=== PATIENT | female | born 1965 | race American Indian/Alaskan Native ===

== ENCOUNTER 2017-06-30 10:39 | Emergency (ER) | payer OTHER ==
[2017-06-30 10:40] VITALS: BMI 24.0
[2017-06-30 10:54] VITALS: RESP 18; O2SAT 100
[2017-06-30] MEDS ORDERED: Sodium Chloride 0.9% 1,000 ML IV ONE (11:07)
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
[2017-06-30 11:21] LABS: BASO % 0.2 % (0.0-2.0); EOS % 0.1 % (0.0-4.0); HEMATOCRIT 42.1 % (34.0-47.0); LYMPH # 3.6 K/uL (1.0-4.3); LYMPH % 26.3 % (20.0-40.0); MEAN CELL VOLUME 81.3 fL (81.0-99.0); MEAN CORPUSCULAR HEMOGLOBIN 26.3 pg (27.0-31.0); MEAN CORPUSCULAR HGB CONC 32.4 g/dL (33.0-37.0); MEAN PLATELET VOLUME 7.8 fL (7.2-11.7); MONO # 0.8 K/uL (0.0-0.8); RED CELL DISTRIBUTION WIDTH 13.8 % (11.5-14.5); WHITE BLOOD COUNT 13.5 K/uL (4.8-10.8)
[2017-06-30 11:28] LABS: CHLORIDE 102 mmol/L (98-107)
[2017-06-30 11:29] LABS: POTASSIUM 3.4 mmol/L (3.6-5.2); SODIUM 142 mmol/L (132-148)
[2017-06-30 11:31] LABS: ALB/GLOB RATIO 1.1 (1.0-2.1); ALKALINE PHOSPHATASE 92 U/L (38-126); AST/SGOT 32 U/L (14-36); BILIRUBIN,TOTAL 0.4 mg/dL (0.2-1.3); BLOOD UREA NITROGEN 15 mg/dL (7-17); CARBON DIOXIDE 24 mmol/L (22-30); GFR AFRICAN-AMERICAN > 60; TOTAL PROTEIN 7.8 g/dL (6.3-8.3)
[2017-06-30 11:32] LABS: ALT/SGPT 37 U/L (9-52); CALCIUM 9.4 mg/dl (8.6-10.4); GLUCOSE,RANDOM 119 mg/dL (65-105)
--- NOTE | 2017-06-30 12:08 | RAD ---
PROCEDURE: Radiographs of the Lumbar Spine. HISTORY: LOW BACK PAIN AFTER INJURY COMPARISON: None available. FINDINGS: BONES: Alignment appears satisfactory. No listhesis. No acute displaced fracture identified. DISC SPACES: Unremarkable. OTHER FINDINGS: None. IMPRESSION: No acute displaced fracture or subluxation identified.
[2017-06-30 12:21] VITALS: BP 113/68; PULSE 73; TEMP 98
--- NOTE | 2017-06-30 20:17 | CARD ---
APPROVED REPORT EKG Measurement Heart [id number] <Conclusion> Normal sinus rhythm Normal ECG
== END 2017-06-30 13:01 | disposition home or self-care (01) ==
LOC: C.ER 10:39
DX: S33.5XXA Sprain of ligaments of lumbar spine, initial encounter (principal); S30.0XXA Contusion of lower back and pelvis, initial encounter; W22.8XXA Striking against or struck by other objects, initial encounter; Y93.89 Activity, other specified; Y92.89 Other specified places as the place of occurrence of the external cause; Y99.8 Other external cause status; R11.2 Nausea with vomiting, unspecified
CPT/HCPCS: 72100; 80053; 82948; 83690; 85025; 93005; 96361; 96374; 99285; J2405; J7040

== ENCOUNTER 2018-05-26 08:08 | Emergency (ER) | payer OTHER ==
[2018-05-26 08:08] VITALS: BMI 24.0
[2018-05-26 08:16] VITALS: RESP 20
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
--- NOTE | 2018-05-26 09:49 | CT ---
Date of service: 05/26/2018 PROCEDURE: CT HEAD WITHOUT CONTRAST. HISTORY: head injury, on ASA, r/o bleed COMPARISON: 10/01/2003 TECHNIQUE: Axial computed tomography images were obtained through the head/brain without intravenous contrast. Radiation dose: Total exam DLP = 849 mGy-cm. This CT exam was performed using one or more of the following dose reduction techniques: Automated exposure control, adjustment of the mA and/or kV according to patient size, and/or use of iterative reconstruction technique. FINDINGS: HEMORRHAGE: No intracranial hemorrhage. BRAIN: No mass effect or edema. No atrophy. The left frontal lobe deep white matter radiolucency without gross surrounding edema is similar in appearance - stable microvascular ischemic changes here are inferred. . VENTRICLES: Unremarkable. No hydrocephalus. CALVARIUM: Unremarkable. PARANASAL SINUSES: Unremarkable as visualized. No significant inflammatory changes. MASTOID AIR CELLS: Unremarkable as visualized. No inflammatory changes. OTHER FINDINGS: None. IMPRESSION: No intracranial hemorrhage or mass effect. The left frontal lobe deep white matter radiolucency without gross surrounding edema is similar in appearance - stable microvascular ischemic changes here are inferred.
[2018-05-26 10:06] VITALS: BP 130/81; PULSE 80; TEMP 98.2
[2018-05-30 12:19] VITALS: O2SAT 97
== END 2018-05-26 10:15 | disposition home or self-care (01) ==
LOC: C.ER 08:08
DX: S00.03XA Contusion of scalp, initial encounter (principal); W22.8XXA Striking against or struck by other objects, initial encounter; Y92.89 Other specified places as the place of occurrence of the external cause; Y99.0 Civilian activity done for income or pay

== ENCOUNTER 2018-12-25 19:53 | Emergency (ER) | payer OTHER ==
[2018-12-25 19:53] VITALS: BMI 24.0
[2018-12-25] MEDS ORDERED: Sucralfate 1 gm/10 ml Oral Susp UD PO STA (20:16)
--- NOTE | 2018-12-25 20:17 | C.PDOC ---
History Of Present Illness 53 year old female presents to the ED c/o epigastric abdominal pain radiating towards his chest wall area. Patient states she has history of GERD and is taking medications for it now. Patient denies fever, chills, SOB, palpitations, headache, nausea, vomit, rash, diarrhea, weakness, numbness, Time Seen by Provider: 12/25/18 20:12 Chief Complaint (Nursing): Shortness Of Breath History Per: Patient History/Exam Limitations: no limitations Onset/Duration Of Symptoms: Days Current Symptoms Are (Timing): Still Present Initiating Event: Upper Respiratory Illness Quality: "Pain" Recent travel outside of the [place]: No Additional History Per: Patient Past Medical History Reviewed: Historical Data, Nursing Documentation, Vital Signs Vital Signs: Last Vital Signs Temp 97.9 F 12/25/18 20:06 Pulse 103 H 12/25/18 20:06 Resp 24 12/25/18 20:06 BP 132/89 12/25/18 20:06 Pulse Ox 100 12/25/18 20:06 - Medical History PMH: Anxiety, Asthma, CHF, Gastritis, GERD, HTN, Hypercholesterolemia Surgical History: Appendectomy Family History: States: Unknown Family Hx - Social History Hx Tobacco Use: No Hx Alcohol Use: No Hx Substance Use: No - Immunization History Hx Tetanus Toxoid Vaccination: No Hx Influenza Vaccination: Yes Hx Pneumococcal Vaccination: No Review Of Systems Constitutional: Negative for: Fever, Chills Cardiovascular: Positive for: Chest Pain. Negative for: Palpitations Respiratory: Negative for: Cough, Shortness of Breath Gastrointestinal: Positive for: Abdominal Pain. Negative for: Nausea, Vomiting, Diarrhea Skin: Negative for: Rash Neurological: Negative for: Weakness, Numbness, Headache, Dizziness Physical Exam - Physical Exam Appears: Non-toxic, No Acute Distress, Other (anxious appearing) Skin: Normal Color, Warm, Dry Head: Atraumatic, Normacephalic Eye(s): bilateral: Normal Inspection Oral Mucosa: Moist Neck: Normal ROM, Supple Chest: Symmetrical Cardiovascular: Rhythm Regular Respiratory: Normal Breath Sounds, No Rales, No Rhonchi, No Wheezing Gastrointestinal/Abdominal: Soft, Tenderness (epigastric), No Guarding, No Rebound Back: No CVA Tenderness Extremity: Normal ROM, No Tenderness, No Swelling Neurological/Psych: Oriented x3, Normal Speech, Normal Cognition Gait: Steady ED Course And Treatment - Laboratory Results Result Diagrams: 12/25/18 20:43 12/25/18 20:43 ECG: Interpreted By Me, Viewed By Me ECG Rhythm: Sinus Rhythm, ST/T Changes ECG Interpretation: No Acute Changes Interpretation Of ECG: NSR, nonspc ST-T changes, borderline tracings Rate From EC O2 Sat by Pulse Oximetry: 100 (ON RA) Pulse Ox Interpretation: Normal - CT Scan/US CT abd/pelvis Other Rad Studies (CT/US): Read By Radiologist, Radiology Report Reviewed CT/US Interpretation: CT SCAN OF THE ABDOMEN AND PELVIS WITHOUT ORAL OR IV CONTRAST. CLINICAL INDICATION: Epigastric pain with elevated lipase. TECHNIQUE: Axial and reformatted sagittal and coronal images of the abdomen pelvis obtained without IV contrast administration. COMPARISON: None. FINDINGS: Minimal subsegmental atelectatic changes in the lung bases more prominent in the lingula and right middle lobe. Uncomplicated colonic diverticulosis. Mild amount of fecal residue and large bowels. Enlarged fatty liver. Normal gallbladder and extrahepatic biliary system. Normal unenhanced spleen. Normal pancreas. . Normal bilateral adrenal glands. Normal size of the right kidney. There is no right renal mass. There are no right renal calculi. There is no right hydronephrosis. Normal visualized right ureter. Normal size of the left kidney. There is no left renal mass. There are no left renal calculi. There is no left hydronephrosis. Normal visualized left ureter. Normal visualized stomach. Normal small intestine. Normal colon. The appendix is visualized and appears normal. There is no demonstrated peritoneal fluid. Normal abdominal aorta. Normal inferior vena cava. Normal retroperitoneum. . Normal urinary bladder. There is no pelvic mass lesion or lymphadenopathy. There is no pelvic fluid. . Normal abdominal wall. Normal osseous structures. IMPRESSION: Minimal subsegmental atelectatic changes in the lung bases more prominent in the lingula and right middle lobe. Uncomplicat ed colonic diverticulosis. Mild amount of fecal residue and large bowels. Enlarged fatty liver. Unremarkable CT evaluation of the pancreas. . Electronically signed on Dec 26, 2018 1:12:54 AM EST by: Mercy Woo M.D., Certified by ABR, MSK, Neuroradiology. Medical Decision Making Medical Decision Making: Plan: * EKG * Labs * CXR * Protonix 40 mg IVP * Carafate 1 gm PO Disposition - Disposition Referrals: Leonel Edge MD [Primary Care Provider] - Disposition: HOME/ ROUTINE Disposition Time: 01:21 Condition: STABLE Prescriptions: Pantoprazole Sodium [Protonix] 40 mg PO DAILY #20 tablet. Sucralfate [Carafate] 1 gm PO BID #14 tab Instructions: Acid Reflux (GERD), Adolescent (DC), Acute Abdomen (Belly Pain), Adult (DC) Forms: [employer] (Frisian) - POA Present On Arrival: None - Clinical Impression Clinical Impression: GERD (gastroesophageal reflux disease), Abdominal pain - Scribe Statement The provider has reviewed the documentation as recorded by the Scribe Vishnu Paz All medical record entries made by the Scribe were at my direction and personally dictated by me. I have reviewed the chart and agree that the record accurately reflects my personal performance of the history, physical exam, medical decision making, and the department course for this patient. I have also personally directed, reviewed, and agree with the discharge instructions and disposition.
[2018-12-25 20:46] LABS: BASO # 0.1 K/uL (0.0-0.2); BASO % 0.6 % (0.0-2.0); EOS # 0.3 K/uL (0.0-0.7); EOS % 2.7 % (0.0-4.0); LYMPH # 4.2 K/uL (1.0-4.3); LYMPH % 44.5 % (20.0-40.0); MEAN CELL VOLUME 82.2 fL (81.0-99.0); MEAN CORPUSCULAR HEMOGLOBIN 26.8 pg (27.0-31.0); MEAN CORPUSCULAR HGB CONC 32.7 g/dL (33.0-37.0); MEAN PLATELET VOLUME 7.7 fL (7.2-11.7); MONO # 0.7 K/uL (0.0-0.8); MONO % 7.7 % (0.0-10.0); NEUT # 4.2 K/uL (1.8-7.0); NEUT % 44.5 % (50.0-75.0); NRBC % 0.1 % (0.0-2.0); RBC 4.85 Mil/uL (3.80-5.20); RED CELL DISTRIBUTION WIDTH 13.4 % (11.5-14.5); WHITE BLOOD COUNT 9.5 K/uL (4.8-10.8)
[2018-12-25 20:58] LABS: ALB/GLOB RATIO 1.5 (1.0-2.1); ALBUMIN 4.3 g/dL (3.5-5.0); ALT/SGPT 36 U/L (9-52); AST/SGOT 34 U/L (14-36); BLOOD UREA NITROGEN 14 mg/dL (7-17); CALCIUM 9.1 mg/dl (8.6-10.4); GFR NON-AFRICAN AMERICAN > 60; LIPASE 312 U/L (23-300)
[2018-12-25] MEDS ORDERED: Iodixanol 320 MG/ML 100 ML BOTTLE IV ONE (22:32)
[2018-12-26 02:39] VITALS: BP 107/69; PULSE 74; RESP 20; TEMP 98.4; O2SAT 99
--- NOTE | 2018-12-26 09:41 | CT ---
Date of service: 12/26/2018 PROCEDURE: CT Abdomen and Pelvis without intravenous contrast HISTORY: epigastric pain/ elevated Lipase COMPARISON: None. TECHNIQUE: Multiple contiguous axial images were performed through the abdomen and pelvis without the use of intravenous contrast. Subsequently, sagittal and coronal reformatted images were obtained. Radiation dose: Total exam DLP = 665.24 mGy-cm. This CT exam was performed using one or more of the following dose reduction techniques: Automated exposure control, adjustment of the mA and/or kV according to patient size, and/or use of iterative reconstruction technique. FINDINGS: LOWER THORAX: Focal nodular consolidation measuring up to 2.3 centimeters in the right middle lobe with adjacent scattered patchy atelectasis seen throughout the remainder of the visualized lung rothman. LIVER: Fatty infiltration of the liver. Focal fatty sparing adjacent to the gallbladder fossa. GALLBLADDER AND BILE DUCTS: Unremarkable. PANCREAS: Unremarkable. No gross lesion or ductal dilatation. Although evaluation somewhat limited on noncontrast CT scan. SPLEEN: Diminutive spleen. ADRENALS: Unremarkable. No mass. KIDNEYS AND URETERS: Unremarkable. No hydronephrosis. No solid mass. VASCULATURE: Unremarkable. No aortic aneurysm. No aortic atherosclerotic calcification or mural plaque present. BOWEL: Fecalization of some small bowel loops which may represent underlying fecal stasis. Fecal retention in the rectum and colon. Colonic diverticulosis. APPENDIX: Not well visualized. No findings to suggest acute appendicitis. Although evaluation somewhat limited on noncontrast CT scan. PERITONEUM: Unremarkable. No free fluid. No free air. LYMPH NODES: Few shotty para-aortic and inguinal lymph nodes. Few shotty mesenteric lymph nodes. BLADDER: Unremarkable. REPRODUCTIVE: Unremarkable. BONES: Degenerative changes in the spine. Sclerosis of the left SI joint. OTHER FINDINGS: None. IMPRESSION: Fecal retention in the colon. Fatty infiltration of the liver. Focal nodular consolidation measuring up to 2.3 centimeters in the right middle lobe with adjacent scattered patchy atelectasis seen throughout the remainder of the visualized lung rothman. Clinical correlation. Correlation with chest x-ray and or chest CT may be helpful if clinically indicated. If symptoms persists, consider correlation with a contrast-enhanced CT scan. A preliminary report was generated at 1:12 a.m. on 12/26/[address] Mercy Woo from [employer]. This case was placed in the PA review folder.
--- NOTE | 2018-12-26 12:09 | RAD ---
Date of service: 12/25/2018 HISTORY: Chest discomfort COMPARISON: 08/13/2016. TECHNIQUE: Chest PA and lateral FINDINGS: LINES AND TUBES: None. LUNG AND PLEURA: The lungs are well inflated and clear. S there is subsegmental atelectasis in the right medial lung base. No pleural effusion or pneumothorax. HEART AND MEDIASTINUM: The heart is not enlarged. No aortic atherosclerotic calcifications present. The hilar and mediastinal contours are within normal limits. SKELETAL STRUCTURES: The bony structures are within normal limits for the patient's age. VISUALIZED UPPER ABDOMEN: Normal. OTHER FINDINGS: None. IMPRESSION: No active pulmonary disease.
--- NOTE | 2018-12-27 19:31 | CARD ---
APPROVED REPORT Date of service: 12/25/2018 EKG Measurement Heart [id number] <Conclusion> Normal sinus rhythm Junctional ST depression, probably normal Borderline ECG
== END 2018-12-26 01:35 | disposition home or self-care (01) ==
LOC: SUPCPDRO 19:53 → C.ER 19:53
DX: K21.9 Gastro-esophageal reflux disease without esophagitis (principal); R10.13 Epigastric pain
CPT/HCPCS: 71046; 74176; 80053; 83690; 84484; 85025; 93005; 96374; 99285; C9113

== ENCOUNTER 2019-02-14 14:49 | Emergency (ER) | payer OTHER ==
[2019-02-14 14:49] VITALS: BMI 24.0
[2019-02-14 14:58] VITALS: TEMP 98.4
[2019-02-14 15:55] VITALS: BP 130/76; PULSE 78; RESP 20
[2019-02-14 15:56] VITALS: O2SAT 100
--- NOTE | 2019-02-14 15:56 | C.PDOC ---
History Of Present Illness 53 y/o female presents to the ED for evaluation of a headache. Patient states she had chills and a headache upon waking this morning, which improved, and then she went to work. While at work patient got into an argument with a coworker. The nurse took her vitals and found patient to be hypertensive and tachycardic, so she was sent home to calm down. At home patient felt lightheaded with a headache, prompting her to come to the ED. She denies chest pain, palpitations, SOB, cough, nausea, vomiting, abdominal pain, visual changes, facial droop, slurred speech, extremity weakness, or sensory changes. States she took her hypertensive medication as well as Zoloft today, which she takes for her anxiety. Time Seen by Provider: 02/14/19 15:03 Chief Complaint (Nursing): High Blood Pressure History Per: Patient History/Exam Limitations: no limitations Onset/Duration Of Symptoms: Hrs Current Symptoms Are (Timing): Still Present Past Medical History Reviewed: Historical Data, Nursing Documentation, Vital Signs Vital Signs: Last Vital Signs Temp 98.4 F 02/14/19 14:53 Pulse 87 02/14/19 15:28 Resp 16 02/14/19 15:28 BP 119/71 02/14/19 15:28 Pulse Ox 100 02/14/19 15:28 - Medical History PMH: Anxiety, Asthma, CHF, Gastritis, GERD, HTN, Hypercholesterolemia Surgical History: Appendectomy Family History: States: Unknown Family Hx - Social History Hx Tobacco Use: No Hx Alcohol Use: No Hx Substance Use: No - Immunization History Hx Tetanus Toxoid Vaccination: No Hx Influenza Vaccination: Yes Hx Pneumococcal Vaccination: No Review Of Systems Constitutional: Negative for: Fever, Chills Eyes: Negative for: Vision Change Cardiovascular: Positive for: Light Headedness. Negative for: Chest Pain, Palpitations Respiratory: Negative for: Shortness of Breath Gastrointestinal: Negative for: Nausea, Vomiting, Abdominal Pain, Diarrhea Neurological: Positive for: Headache. Negative for: Weakness, Numbness, Change in Speech, Confusion, Altered Mental Status Physical Exam - Physical Exam Appears: Non-toxic, No Acute Distress, Other (Appears anxious) Skin: Normal Color, Warm, Dry Head: Atraumatic, Normacephalic Eye(s): bilateral: Normal Inspection, PERRL, EOMI Oral Mucosa: Moist Neck: Normal ROM Chest: Symmetrical Cardiovascular: Rhythm Regular, No Murmur Respiratory: Normal Breath Sounds, No Accessory Muscle Use Gastrointestinal/Abdominal: Soft, No Tenderness, No Distention Extremity: Bilateral: Atraumatic, Normal Color And Temperature Pulses: Left Radial: Normal, Right Radial: Normal Neurological/Psych: Oriented x3, Normal Speech, Normal Cranial Nerves, Other (No focal deficits) Gait: Steady ED Course And Treatment ECG: Interpreted By Me ECG Rhythm: Sinus Tachycardia Interpretation Of ECG: Normal axis, No acute ST or T wave changes Rate From EC O2 Sat by Pulse Oximetry: 100 (RA) Pulse Ox Interpretation: Normal Progress Note: EKG reviewed, showing no acute ST/T changes. Accucheck done, BS is 188. Patient given Tylenol and Xanax. Disposition Counseled Patient/Family Regarding: Diagnosis, Need For Followup - Disposition Referrals: Leonel Edge MD [Staff Provider] - Disposition: HOME/ ROUTINE Disposition Time: 16:00 Condition: STABLE Additional Instructions: FOLLOW UP WITH YOUR DOCTOR IN 1-2 DAYS RETURN TO ER IF SYMPTOMS WORSEN Instructions: Anxiety, Adult (DC) Forms: General Discharge Instructions, [facility] (Bulgarian) Print Language: TRISTANIAN - POA Present On Arrival: None - Clinical Impression Clinical Impression: Anxiety - Scribe Statement The provider has reviewed the documentation as recorded by the Abimaelibmerlyn Shcwab Provider Attestation: All medical record entries made by the Scribe were at my direction and personally dictated by me. I have reviewed the chart and agree that the record accurately reflects my personal performance of the history, physical exam, medical decision making, and the department course for this patient. I have also personally directed, reviewed, and agree with the discharge instructions and disposition.
--- NOTE | 2019-02-14 15:57 | C.PDOC ---
Time Seen by Provider: 02/14/19 15:03 Chief Complaint (Nursing): High Blood Pressure Past Medical History Vital Signs: Last Vital Signs Temp 98.4 F 02/14/19 14:53 Pulse 78 02/14/19 15:55 Resp 20 02/14/19 15:55 BP 130/76 02/14/19 15:55 Pulse Ox 100 02/14/19 15:56 - Medical History PMH: Anxiety, Asthma, CHF, Gastritis, GERD, HTN, Hypercholesterolemia Surgical History: Appendectomy Family History: States: Unknown Family Hx - Social History Hx Tobacco Use: No Hx Alcohol Use: No Hx Substance Use: No - Immunization History Hx Tetanus Toxoid Vaccination: No Hx Influenza Vaccination: Yes Hx Pneumococcal Vaccination: No ED Course And Treatment O2 Sat by Pulse Oximetry: 100 Disposition Counseled Patient/Family Regarding: Diagnosis, Need For Followup - Disposition Referrals: Leonel Edge MD [Staff Provider] - Disposition: HOME/ ROUTINE Disposition Time: 16:00 Condition: STABLE Instructions: Anxiety, Adult (DC) Forms: [facility] (Mexican), General Discharge Instructions Print Language: FRISIAN - Clinical Impression Clinical Impression: Anxiety
--- NOTE | 2019-02-16 14:05 | CARD ---
APPROVED REPORT Date of service: 02/14/2019 EKG Measurement Heart [id number] <Conclusion> Sinus tachycardia Possible Left atrial enlargement Borderline ECG
== END 2019-02-14 16:03 | disposition home or self-care (01) ==
LOC: C.ER 14:49
DX: F41.9 Anxiety disorder, unspecified (principal)

== ENCOUNTER 2019-03-03 16:36 | Emergency (ER) | payer OTHER ==
[2019-03-03 16:49] VITALS: BMI 23.1
--- NOTE | 2019-03-03 17:00 | C.PDOC ---
History Of Present Illness Patient is a 53 year old female, with a PMHx of asthma, anxiety, CHF, HTN, HLD, appendectomy, who presents to the ED c/o SOB that began this morning. Patient states that her SOB felt like asthma, however at 8am she felt chest pressure as well that lasted for 5 minutes and resolved after. She states that at that time she called EMS, but was feeling better after a dose of Albuterol so she did not seek to come in. She reports that her symptoms came back and she decided to come in. Patient denies any present chest pressure, falls, leg swelling, SOB with exertion, or waking up in the middle of the night with SOB. Time Seen by Provider: 03/03/19 17:00 Chief Complaint (Nursing): Shortness Of Breath History Per: Patient History/Exam Limitations: no limitations Onset/Duration Of Symptoms: Hrs Current Symptoms Are (Timing): Still Present Recent travel outside of the [place]: No Additional History Per: Patient Past Medical History Reviewed: Historical Data, Nursing Documentation, Vital Signs Vital Signs: Last Vital Signs Temp 98.8 F 03/03/19 16:47 Pulse 101 H 03/03/19 16:47 Resp 20 03/03/19 16:47 BP 169/91 H 03/03/19 16:47 Pulse Ox 99 03/03/19 16:47 Primary Care Provider: Leonel Edge - Medical History PMH: Anxiety, Asthma, CHF, Gastritis, GERD, HTN, Hypercholesterolemia Surgical History: Appendectomy Family History: States: Unknown Family Hx - Social History Hx Tobacco Use: No Hx Alcohol Use: No Hx Substance Use: No - Immunization History Hx Tetanus Toxoid Vaccination: No Hx Influenza Vaccination: Yes Hx Pneumococcal Vaccination: No Review Of Systems Cardiovascular: Positive for: Chest Pain (pressure). Negative for: Edema Respiratory: Positive for: Shortness of Breath. Negative for: SOB with Excertion Physical Exam - Physical Exam Appears: Non-toxic, No Acute Distress Skin: Warm, Dry Head: Normacephalic Eye(s): bilateral: Normal Inspection, PERRL, EOMI Oral Mucosa: Moist Neck: Trachea Midline, Supple, Other (No meningeal signs- negative kernig's and brudzinskis) Chest: Symmetrical Cardiovascular: Rhythm Regular, No Friction Rub Respiratory: No Rales, No Rhonchi, No Wheezing Gastrointestinal/Abdominal: Soft, No Tenderness, No Distention Extremity: Bilateral: Normal Color And Temperature Pulses: Left Dorsalis Pedis: Normal, Right Dorsalis Pedis: Normal Neurological/Psych: Oriented x3 ED Course And Treatment - Laboratory Results Result Diagrams: 03/03/19 17:34 03/03/19 17:34 O2 Sat by Pulse Oximetry: 99 (on RA) Pulse Ox Interpretation: Normal - Other Rad CXR X-Ray: Viewed By Me, Read By Radiologist Interpretation: Date of service: 03/03/2019. HISTORY: Shortness of breath. COMPARISON: 12/25/2018. FINDINGS: LUNGS: No active pulmonary disease. PLEURA: No significant pleural effusion identified, no pneumothorax apparent. CARDIOVASCULAR: No atherosclerotic calcification present. Normal. OSSEOUS STRUCTURES: No significant abnormalities. VISUALIZED UPPER ABDOMEN: Normal. OTHER FINDINGS: None. IMPRESSION: No active pulmonary disease. No significant interval change compared to the prior examination(s). Medical Decision Making Medical Decision Making: Patient is a 53 year old female, with a PMHx of asthma, anxiety, CHF, HTN, HLD, appendectomy, who presents to the ED c/o SOB that began this morning. Plan: EKG Labs CXR Duoneb 3ml INH POC Urine Impression: ACS vs. CHF EKG: NSR 88. No Stemi 1920 wbc 13k, afebrile, no urinary complaitns or rash. CXR unremarkable pending Dimer, pt in NAD 1953 Dimer negative labs unremarakble appreciate consult w/ Dr. Edge bedside (PMD): clear for d/c home with return indications and f/u. pt agreeable to plan, we are to prescribe ranitidine for pt. pt is ageeable Disposition - Disposition Referrals: Keenan Reid MD [Staff Provider] - Asher English MD [Staff Provider] - [facility] [Outside] [facility] [Outside] [facility] [Outside] Leonel Edge MD [Staff Provider] - Disposition: HOME/ ROUTINE Disposition Time: 19:58 Condition: STABLE Additional Instructions: TRELL NUR, thank you for letting us take care of you today. Your provider was Jefferson Lopez and you were treated for ASTHMA/SOB. The emergency medical care you received today was directed at your acute symptoms. If you were prescribed any medication, please fill it and take as directed. It may take several days for your symptoms to resolve. Return to the Emergency Department if your symptoms worsen, do not improve, or if you have any other problems. Please contact your doctor or call one of the physicians/clinics you have been referred to that are listed on the Patient Visit Information form that is included in your discharge packet. Bring any paperwork you were given at discharge with you along with any medications you are taking to your follow up visit. Our treatment cannot replace ongoing medical care by a primary care prov ider outside of the emergency department. Thank you for allowing the [facility] team to be part of your care today. If you had an X-Ray or CT scan: A Radiologist will review the ED reading if any change in treatment is needed we will contact you. If you had a blood, urine, or wound culture: It will take several days for the results, if any change in treatment is needed we will contact you. If you had an STI test: It will take 48 hours for the results. Please call after 1 week if you have not heard back. Prescriptions: Ranitidine HCl [Acid Bookkeeper Receptionist] 75 mg PO BID PRN 6 Days #12 tablet PRN Reason: Dyspepsia Instructions: Gastritis (DC), Chest Pain (DC) Forms: [employer] (Maltese) - Clinical Impression Clinical Impression: Gastritis, bile acid reflux, Chest pain - Scribe Statement The provider has reviewed the documentation as recorded by the Yaw Mccall All medical record entries made by the Abimaelibmerlyn were at my direction and personally dictated by me. I have reviewed the chart and agree that the record accurately reflects my personal performance of the history, physical exam, medical decision making, and the department course for this patient. I have also personally directed, reviewed, and agree with the discharge instructions and disposition.
[2019-03-03] MEDS ORDERED: Albuterol-Ipratrop 3 mg / 0.5 (3 ml) UD INH STA (17:36)
--- NOTE | 2019-03-03 17:41 | RAD ---
Date of service: 03/03/2019 HISTORY: Shortness of breath COMPARISON: 12/25/2018. FINDINGS: LUNGS: No active pulmonary disease. PLEURA: No significant pleural effusion identified, no pneumothorax apparent. CARDIOVASCULAR: No atherosclerotic calcification present Normal. OSSEOUS STRUCTURES: No significant abnormalities. VISUALIZED UPPER ABDOMEN: Normal. OTHER FINDINGS: None. IMPRESSION: No active pulmonary disease. No significant interval change compared to the prior examination(s).
[2019-03-03 17:42] LABS: BASO # 0.1 K/uL (0.0-0.2); BASO % 0.4 % (0.0-2.0); EOS % 0.3 % (0.0-4.0); HEMOGLOBIN 14.3 g/dL (11.0-16.0); LYMPH # 3.6 K/uL (1.0-4.3); MEAN CELL VOLUME 82.2 fL (81.0-99.0); MEAN CORPUSCULAR HGB CONC 32.8 g/dL (33.0-37.0); MEAN PLATELET VOLUME 7.9 fL (7.2-11.7); MONO # 0.8 K/uL (0.0-0.8); MONO % 6.1 % (0.0-10.0); NEUT # 8.8 K/uL (1.8-7.0); NEUT % 66.2 % (50.0-75.0); RBC 5.3 Mil/uL (3.80-5.20); RED CELL DISTRIBUTION WIDTH 13.9 % (11.5-14.5); WHITE BLOOD COUNT 13.3 K/uL (4.8-10.8)
[2019-03-03 17:56] LABS: ALB/GLOB RATIO 1.3 (1.0-2.1); ALBUMIN 4.8 g/dL (3.5-5.0); ALT/SGPT 30 U/L (9-52); AST/SGOT 35 U/L (14-36); BLOOD UREA NITROGEN 14 mg/dL (7-17); GFR NON-AFRICAN AMERICAN > 60
[2019-03-03 18:01] LABS: PROTHROMBIN TIME 11.4 SECONDS (9.7-12.2)
[2019-03-03 18:08] LABS: B-TYPE NATRIURETIC PEPTIDE 52.8 pg/mL (0-900)
[2019-03-03 19:25] LABS: D DIMER < 200 ng/mlDDU (0-243)
[2019-03-03 20:10] VITALS: BP 114/63; PULSE 73; RESP 13; TEMP 98; O2SAT 96
--- NOTE | 2019-03-06 12:40 | CARD ---
APPROVED REPORT Date of service: 03/03/2019 EKG Measurement Heart [id number] ME 154P69 [id number] <Conclusion> Poor data quality, interpretation may be adversely affected Normal sinus rhythm Normal ECG
== END 2019-03-03 20:17 | disposition home or self-care (01) ==
LOC: C.ER 16:36
DX: K29.70 Gastritis, unspecified, without bleeding (principal); K21.9 Gastro-esophageal reflux disease without esophagitis; R07.9 Chest pain, unspecified; I11.0 Hypertensive heart disease with heart failure; I50.9 Heart failure, unspecified; E78.00 Pure hypercholesterolemia, unspecified; F41.9 Anxiety disorder, unspecified

== ENCOUNTER 2019-03-06 20:38 | Emergency (ER) | payer OTHER ==
[2019-03-06 20:38] VITALS: BMI 24.0
--- NOTE | 2019-03-06 21:25 | C.PDOC ---
History Of Present Illness 53 year old female with PMHx of asthma and anxiety presents to the ED c/o palpitations that started after using her nebulizer at home today. Patient was seen in the ED 2 days ago with negative labs, D-Dimer. Patient denies fever, chi lls, headache, visual changes, SOB, nausea, vomit, rash, weakness, numbness. Time Seen by Provider: 03/06/19 21:13 Chief Complaint (Nursing): Palpitations History Per: Patient History/Exam Limitations: no limitations Onset/Duration Of Symptoms: Hrs Current Symptoms Are (Timing): Still Present Quality: Other Recent travel outside of the [place]: No Additional History Per: Patient Past Medical History Reviewed: Historical Data, Nursing Documentation, Vital Signs Vital Signs: Last Vital Signs Temp 98.6 F 03/06/19 20:41 Pulse 91 H 03/06/19 21:15 Resp 19 03/06/19 21:15 BP 145/70 03/06/19 21:15 Pulse Ox 98 03/06/19 21:15 Primary Care Provider: Leonel Edge - Medical History PMH: Anxiety, Asthma, CHF, Gastritis, GERD, HTN, Hypercholesterolemia Surgical History: Appendectomy Family History: States: Unknown Family Hx - Social History Hx Tobacco Use: No Hx Alcohol Use: No Hx Substance Use: No - Immunization History Hx Tetanus Toxoid Vaccination: No Hx Influenza Vaccination: Yes Hx Pneumococcal Vaccination: No Review Of Systems Constitutional: Negative for: Fever, Chills Eyes: Negative for: Vision Change Cardiovascular: Positive for: Palpitations. Negative for: Chest Pain Respiratory: Negative for: Shortness of Breath Gastrointestinal: Negative for: Nausea, Vomiting, Abdominal Pain Skin: Negative for: Rash Neurological: Negative for: Weakness, Numbness, Headache, Dizziness Physical Exam - Physical Exam Appears: Non-toxic, No Acute Distress, Other (anxious appearing) Skin: Normal Color, Warm, Dry Head: Atraumatic, Normacephalic Eye(s): bilateral: Normal Inspection, PERRL, EOMI Neck: Normal ROM, Supple Chest: Symmetrical Cardiovascular: Rhythm Regular Respiratory: Normal Breath Sounds, No Rales, No Rhonchi, No Wheezing Gastrointestinal/Abdominal: Soft, No Tenderness, No Guarding, No Rebound Extremity: Normal ROM, No Tenderness, No Swelling Neurological/Psych: Oriented x3, Normal Speech, Normal Cognition Gait: Steady ED Course And Treatment - Laboratory Results Result Diagrams: 03/06/19 22:43 03/06/19 21:34 ECG: Interpreted By Me, Viewed By Me ECG Rhythm: Sinus Tachycardia ECG Interpretation: No Acute Changes (ST/T wave) Rate From EC (BPM) O2 Sat by Pulse Oximetry: 98 (ON RA) Pulse Ox Interpretation: Normal Medical Decision Making Medical Decision Making: suspect anxiety/medication se. Plan: * EKG * Labs * CXR * UA palpitations s/p using albuerol atypcial cp/symptooms neg trop dimer 2 days ago. lungs cta long standing h/o of anxieyt labs trop neg. no ekg changes stable for dc. cxr neg as read by me Disposition - Disposition Disposition: HOME/ ROUTINE Disposition Time: 23:00 Condition: STABLE Additional Instructions: return to er with worsneing symptoms or concenrs. Instructions: Generalized Anxiety Disorder, Palpitations Forms: [facility] (Bengali) - Clinical Impression Clinical Impression: Palpitations - Scribe Statement The provider has reviewed the documentation as recorded by the Scribe Vishnu Paz All medical record entries made by the Scribe were at my direction and personally dictated by me. I have reviewed the chart and agree that the record accurately reflects my personal performance of the history, physical exam, medi owen decision making, and the department course for this patient. I have also personally directed, reviewed, and agree with the discharge instructions and disposition.
[2019-03-06 21:45] LABS: SQUAMOUS EPITHIAL 3 /hpf (0-5); URINE BACTERIA FEW (<OCC); URINE BILIRUBIN NEGATIVE (NEGATIVE); URINE BLOOD 2+ (NEGATIVE); URINE CLARITY Hazy (Clear); URINE COLOR Yellow (YELLOW); URINE GLUCOSE (UA) NORMAL (Normal); URINE LEUKOCYTE ESTERASE 3+ Leu/uL (Negative); URINE PROTEIN NEGATIVE (NEGATIVE); URINE UROBILINOGEN NORMAL mg/dL (0.2-1.0)
[2019-03-06 22:31] LABS: ALB/GLOB RATIO 1.2 (1.0-2.1); ALBUMIN 4.7 g/dL (3.5-5.0); ALT/SGPT 27 U/L (9-52); AST/SGOT 54 U/L (14-36); BLOOD UREA NITROGEN 16 mg/dL (7-17); CALCIUM 9.8 mg/dl (8.6-10.4); GFR NON-AFRICAN AMERICAN > 60
[2019-03-06 22:51] LABS: BASO % 0.3 % (0.0-2.0); EOS # 0.1 K/uL (0.0-0.7); EOS % 0.5 % (0.0-4.0); LYMPH # 3.8 K/uL (1.0-4.3); LYMPH % 27.6 % (20.0-40.0); MEAN CELL VOLUME 81.4 fL (81.0-99.0); MEAN CORPUSCULAR HEMOGLOBIN 27.3 pg (27.0-31.0); MEAN CORPUSCULAR HGB CONC 33.5 g/dL (33.0-37.0); MEAN PLATELET VOLUME 7.7 fL (7.2-11.7); MONO # 1.1 K/uL (0.0-0.8); MONO % 8.1 % (0.0-10.0); NEUT # 8.8 K/uL (1.8-7.0); NEUT % 63.5 % (50.0-75.0); RBC 5.13 Mil/uL (3.80-5.20); RED CELL DISTRIBUTION WIDTH 13.2 % (11.5-14.5); WHITE BLOOD COUNT 13.9 K/uL (4.8-10.8)
[2019-03-06 23:14] LABS: INR 1.1; PROTHROMBIN TIME 11.6 SECONDS (9.7-12.2)
[2019-03-06 23:22] VITALS: O2SAT 98
[2019-03-06 23:27] VITALS: BP 132/74; PULSE 82; RESP 16; TEMP 98.2
--- NOTE | 2019-03-07 15:24 | RAD ---
HISTORY: chest pain COMPARISON: Chest x-ray performed 03/03/19 TECHNIQUE: Chest, one view. FINDINGS: Examination limited by habitus. LUNGS: No focal consolidation. Please note that chest x-ray has limited sensitivity for the detection of pulmonary masses. PLEURA: No significant pleural effusion identified. No definite pneumothorax . CARDIOVASCULAR: Heart size appears within normal limits. No significant atherosclerotic calcification present. OSSEOUS STRUCTURES: No acute osseous abnormality is detected. Large dense calcification versus sclerosis at the level of the left proximal humerus as on prior study. VISUALIZED UPPER ABDOMEN: Unremarkable. OTHER FINDINGS: None. IMPRESSION: No focal consolidation.
== END 2019-03-06 23:27 | disposition home or self-care (01) ==
LOC: C.ER 20:38
DX: R00.2 Palpitations (principal); I11.0 Hypertensive heart disease with heart failure; I50.9 Heart failure, unspecified; E78.00 Pure hypercholesterolemia, unspecified; K21.9 Gastro-esophageal reflux disease without esophagitis